=== PATIENT | female | born 1980 | race Caucasian/White ===

== ENCOUNTER 2016-12-16 11:36 | Emergency (ER) | payer MEDICARE, OTHER ==
--- NOTE | 2016-12-16 13:27 | ED CLINICAL REPORT ---
Clinical Report - Physicians/Mid Levels [facility] [address] [place] [address] 12/16/2016 11:39 [id number] Time Seen: [id number]. Arrived- By private vehicle. Historian- patient. HISTORY OF PRESENT ILLNESS Chief Complaint: Injury to right leg. The injury happened yesterday. Occurred at home. The patient sustained a direct blow and crush injury. Patient is experiencing moderate pain. Patient denies injury to the head or neck. (yesterday on 15 December, patient sustained a blow to her right leg when she was on the counter, fell onto a hard surface. She has been ambulatory, pain was such. Has had swelling, as well as discoloration. Has applied ice to the area. Has taken Motrin, however pain persists. Patient concerned about a fracture to the area.). REVIEW OF SYSTEMS The patient complains of pain on weight bearing. No swelling, tingling or skin laceration. All systems otherwise negative, except as recorded above. PAST HISTORY The patient has not had a prior injury to the same area. SOCIAL HISTORY Smoker- current status unknown. No alcohol use. ADDITIONAL NOTES The nursing notes have been reviewed. PHYSICAL EXAM Vital Signs: 12/16/2016 12:46 BP: 141/109. HR: 113. RR: 20. O2 saturation: 95%. Temp: 98.3 F. Pain level now: 7/10. Appearance: Alert. Patient in mild distress. Head: Head atraumatic. ENT: Ears normal. Nose normal. CVS: Normal heart rate and rhythm. Heart sounds normal. Respiratory: No respiratory distress. Breath sounds normal. Skin: Skin intact. Skin warm. Extremities: Right knee. No tenderness or laceration. Right leg: moderate tenderness, mild swelling and medium sized ecchymosis located in the anterior aspect of mid leg. Neurovascular intact distally. No laceration, abrasion, puncture wound or foreign body. No limitation of weight bearing. Right ankle. No tenderness or swelling. Neuro, Vascular and Tendons: Vascular status intact. Tendon function intact. Gait: Limping gait. Neuro: Oriented X 3. LABS, X-RAYS, AND EKG Rt Tib/Fib X-ray: No fracture. Normal alignment. No bony lesion. The X-rays were independently viewed by me. Interpretation time: 1332. PROGRESS AND PROCEDURES Course of Care: Pt with good distal sensation, no laceration, no signs of infectious process. Direct crush injury/ impact. Pt stable. Pt to f/u outpatient. XR neg. Patient is stable. Symptoms better. Patient/family counseled. Disposition: Discharged. Condition: good. CLINICAL IMPRESSION Single contusion with soft tissue hematoma to the right lower leg. INSTRUCTIONS Apply ice. Elevate affected areas above chest level. Prescription Medications: Tylenol with Codeine Tylenol #3 (30 mg / 300 mg) : take 1 tablet orally every 6 hours. Dispense ten (10). No refill. Substitution is permissible. OTC Medications: Take OTC medications according to label instructions. Available over the counter. Acetaminophen (available over the counter): take according to label instructions. Motrin IB 200 mg (available over the counter): take 4 orally every 8 hours for 5 days, as needed for pain Follow-up: Follow up with your doctor in three days. Understanding of the discharge instructions verbalized by patient. (Electronically signed by Iwona Lezama P.A.-C 12/16/2016 13:33)
--- NOTE | 2016-12-16 13:27 | ED ORDER SUMMARY ---
..... Patient: BRIAN MERIDA OrderSheet [facility] VisitID: [id number] [place] [address] 35y, F Registration Date/Time: 12/16/2016 ORDER SHEET Weight: 79.3 kg (stated) Allergies: Compazine GENERAL ORDERS: Tibia/Fibula Right Urgent (12:36 12/16/2016 Rudi Regalado) ([facility] 12:44 TBergl) (13:27 LWhalen R.N.) MEDICATION ORDERS: Tylenol w Codeine PO 2 tabs (HIGH ALERT MEDICATION, NOW) (13:12 12/16/2016 Rudi Regalado) (13:27 LWhalen R.N.) IV FLUIDS: ORDER SHEET NOTES: [Electronically signed by Iwona Lezama P.A.-C (13:33 12/16/2016)] [Electronically signed by Kay Gray R.N. (13:41 12/16/2016)] [Electronically locked/signed by Kay Gray R.N. (13:41 12/16/2016)]
--- NOTE | 2016-12-16 13:27 | ED ORDER SUMMARY ---
..... Patient: BRIAN MERIDA OrderSheet [facility] VisitID: [id number] [place] [address] 35y, F Registration Date/Time: 12/16/2016 ORDER SHEET Weight: 79.3 kg (stated) Allergies: Compazine GENERAL ORDERS: Tibia/Fibula Right Urgent (12:36 12/16/2016 Rudi Regalado) ([facility] 12:44 TBergl) (13:27 LWhalen R.N.) MEDICATION ORDERS: Tylenol w Codeine PO 2 tabs (HIGH ALERT MEDICATION, NOW) (13:12 12/16/2016 Rudi Regalado) (13:27 LWhalen R.N.) IV FLUIDS: ORDER SHEET NOTES: [Electronically signed by Iwona Lezama P.A.-C (13:33 12/16/2016)] [Electronically signed by Kay Gray R.N. (13:41 12/16/2016)] [Electronically locked/signed by Kay Gray R.N. (13:41 12/16/2016)]
--- NOTE | 2016-12-16 13:27 | ED NURSING NOTES ---
Clinical Report - Nurses [facility] [address] [place] [address] 12/16/2016 11:39 [id number] TRI[facility] Triage time 12:46. Acuity: LEVEL 4. Chief Complaint: INJURY TO THE RIGHT KNEE and RIGHT LEG. 12:53 12/16/16. MIN COMA SCORE: [place] Coma Scale: 15- eyes open spontaneously (4); best verbal response- oriented x 4 (5); best motor response- obeys commands (6). --12:53 Kvng Montgomery R.N. 12:46 12/16/16. BP: 141/109. HR: 113. RR: 20. O2 saturation: 95% on room air. Temp: 98.3 F (oral). Pain level now: 06/04. --12:53 Kvng Montgomery R.N. Weight: 79.3 kg stated. Height/Length: 65 inches Per Patient. BMI: 29.1. --12:49 Kvng Montgomery R.N. Medications BCP for home replacement therapy. --12:48 Kvng Montgomery R.N. Allergies Compazine. --12:48 Kvng Montgomery R.N. History Arrived by private vehicle. Historian: patient. ( Slipped off of a step stool and landed on her right patel on the metal step stool. Bruising from the lower patel to the medial knee. Pain from the lower patel into the knee.). She has had numbness (mild numbness in the right foot.). She has had tingling, (Right foot). 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 SOCIAL HX: Light tobacco smoker (cigarette)- less than 1/2 a pack per day. No alcohol use or drug use. ABUSE ASSESSMENT: No report of abuse. --12:53 Kvng Montgomery R.N. PROBLEMS: Conjunctivitis. Blepharitis. Abscess. Endometriosis. Sprain. Tetanus Status. Depression. Hypertension. --12:49 Kvng Montgomery R.N. ADDITIONAL SURGERIES: Hysterectomy. --12:49 Kvng Montgomery R.N. Interventions ID band on patient. To treatment room. --12:53 Kvng Montgomery R.N. NURSING PROGRESS NOTES 13:26 12/16/2016 TYLENOL W CODEINE (Acetaminophen-Codeine) PO Capsules 2 tab given. Allergies verified and confirmed 5 rights. --13:27 Abdullahi Amin R.N. DISPOSITION / DISCHARGE Departure time: 13:40. Condition at departure: improved. No learning barriers present. Discharge instructions provided and reviewed with the patient. Reviewed skin care instructions (ice packs). Reviewed referral to family practice for followup. Verbalized understanding. Written instructions provided. The patient was discharged home. She left the Emergency Department ambulatory and via private vehicle. --13:40 Kay Gray R.N. 13:38 12/16/16. BP: 135/99. HR: 111. RR: 18. O2 saturation: 99%. Pain level now: 5/10. --13:40 Kay Gray R.N. Locked/Released at 12/16/2016 13:41 by Kay Gray R.N.
--- NOTE | 2016-12-16 13:27 | ED CLINICAL REPORT ---
Clinical Report - Physicians/Mid Levels [facility] [address] [place] [address] 12/16/2016 11:39 [id number] Time Seen: [id number]. Arrived- By private vehicle. Historian- patient. HISTORY OF PRESENT ILLNESS Chief Complaint: Injury to right leg. The injury happened yesterday. Occurred at home. The patient sustained a direct blow and crush injury. Patient is experiencing moderate pain. Patient denies injury to the head or neck. (yesterday on 15 December, patient sustained a blow to her right leg when she was on the counter, fell onto a hard surface. She has been ambulatory, pain was such. Has had swelling, as well as discoloration. Has applied ice to the area. Has taken Motrin, however pain persists. Patient concerned about a fracture to the area.). REVIEW OF SYSTEMS The patient complains of pain on weight bearing. No swelling, tingling or skin laceration. All systems otherwise negative, except as recorded above. PAST HISTORY The patient has not had a prior injury to the same area. SOCIAL HISTORY Smoker- current status unknown. No alcohol use. ADDITIONAL NOTES The nursing notes have been reviewed. PHYSICAL EXAM Vital Signs: 12/16/2016 12:46 BP: 141/109. HR: 113. RR: 20. O2 saturation: 95%. Temp: 98.3 F. Pain level now: 7/10. Appearance: Alert. Patient in mild distress. Head: Head atraumatic. ENT: Ears normal. Nose normal. CVS: Normal heart rate and rhythm. Heart sounds normal. Respiratory: No respiratory distress. Breath sounds normal. Skin: Skin intact. Skin warm. Extremities: Right knee. No tenderness or laceration. Right leg: moderate tenderness, mild swelling and medium sized ecchymosis located in the anterior aspect of mid leg. Neurovascular intact distally. No laceration, abrasion, puncture wound or foreign body. No limitation of weight bearing. Right ankle. No tenderness or swelling. Neuro, Vascular and Tendons: Vascular status intact. Tendon function intact. Gait: Limping gait. Neuro: Oriented X 3. LABS, X-RAYS, AND EKG Rt Tib/Fib X-ray: No fracture. Normal alignment. No bony lesion. The X-rays were independently viewed by me. Interpretation time: 1332. PROGRESS AND PROCEDURES Course of Care: Pt with good distal sensation, no laceration, no signs of infectious process. Direct crush injury/ impact. Pt stable. Pt to f/u outpatient. XR neg. Patient is stable. Symptoms better. Patient/family counseled. Disposition: Discharged. Condition: good. CLINICAL IMPRESSION Single contusion with soft tissue hematoma to the right lower leg. INSTRUCTIONS Apply ice. Elevate affected areas above chest level. Prescription Medications: Tylenol with Codeine Tylenol #3 (30 mg / 300 mg) : take 1 tablet orally every 6 hours. Dispense ten (10). No refill. Substitution is permissible. OTC Medications: Take OTC medications according to label instructions. Available over the counter. Acetaminophen (available over the counter): take according to label instructions. Motrin IB 200 mg (available over the counter): take 4 orally every 8 hours for 5 days, as needed for pain Follow-up: Follow up with your doctor in three days. Understanding of the discharge instructions verbalized by patient. (Electronically signed by Iwona Lezama P.A.-C 12/16/2016 13:33)
--- NOTE | 2016-12-16 13:27 | ED NURSING NOTES ---
Clinical Report - Nurses [facility] [address] [place] [address] 12/16/2016 11:39 [id number] Triage time 12:46. Acuity: LEVEL 4. Chief Complaint: INJURY TO THE RIGHT KNEE and RIGHT LEG. 12:53 12/16/16. MIN COMA SCORE: [place] Coma Scale: 15- eyes open spontaneously (4); best verbal response- oriented x 4 (5); best motor response- obeys commands (6). --12:53 Kvng Montgomery R.N. 12:46 12/16/16. BP: 141/109. HR: 113. RR: 20. O2 saturation: 95% on room air. Temp: 98.3 F (oral). Pain level now: 06/04. --12:53 Kvng Montgomery R.N. Weight: 79.3 kg stated. Height/Length: 65 inches Per Patient. BMI: 29.1. --12:49 Kvng Montgomery R.N. Medications BCP for home replacement therapy. --12:48 Kvng Montgomery R.N. Allergies Compazine. --12:48 Kvng Montgomery R.N. History Arrived by private vehicle. Historian: patient. ( Slipped off of a step stool and landed on her right patel on the metal step stool. Bruising from the lower patel to the medial knee. Pain from the lower patel into the knee.). She has had numbness (mild numbness in the right foot.). She has had tingling, (Right foot). 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 SOCIAL HX: Light tobacco smoker (cigarette)- less than 1/2 a pack per day. No alcohol use or drug use. ABUSE ASSESSMENT: No report of abuse. --12:53 Kvng Montgomery R.N. PROBLEMS: Conjunctivitis. Blepharitis. Abscess. Endometriosis. Sprain. Tetanus Status. Depression. Hypertension. --12:49 Kvng Montgomery R.N. ADDITIONAL SURGERIES: Hysterectomy. --12:49 Kvng Montgomery R.N. Interventions ID band on patient. To treatment room. --12:53 Kvng Montgomery R.N. NURSING PROGRESS NOTES 13:26 12/16/2016 TYLENOL W CODEINE (Acetaminophen-Codeine) PO Capsules 2 tab given. Allergies verified and confirmed 5 rights. --13:27 Abdullahi Amin R.N. DISPOSITION / DISCHARGE Departure time: 13:40. Condition at departure: improved. No learning barriers present. Discharge instructions provided and reviewed with the patient. Reviewed skin care instructions (ice packs). Reviewed referral to family practice for followup. Verbalized understanding. Written instructions provided. The patient was discharged home. She left the Emergency Department ambulatory and via private vehicle. --13:40 Kay Gray R.N. 13:38 12/16/16. BP: 135/99. HR: 111. RR: 18. O2 saturation: 99%. Pain level now: 5/10. --13:40 Kay Gray R.N. Locked/Released at 12/16/2016 13:41 by Kay Gray R.N.
--- NOTE | 2016-12-16 13:42 | ED DISCHARGE INSTRUCTIONS ---
Patient: BRIAN MERIDA General Instructions [facility] VisitID: [id number] [place] [address] 35y, F Registration Date/Time: 12/16/2016 Single contusion with soft tissue hematoma to the right lower leg. INSTRUCTIONS Apply ice. Elevate affected areas above chest level. Prescription Medications: Tylenol with Codeine Tylenol #3 (30 mg / 300 mg) : take 1 tablet orally every 6 hours. Dispense ten (10). No refill. Substitution is permissible. OTC Medications: Take OTC medications according to label instructions. Available over the counter. Acetaminophen (available over the counter): take according to label instructions. Motrin IB 200 mg (available over the counter): take 4 orally every 8 hours for 5 days, as needed for pain Follow-up: Follow up with your doctor in three days. Understanding of the discharge instructions verbalized by patient. ADDITIONAL INFORMATION Contusion:Lower Extremity You have a CONTUSION of your LOWER extremity (leg, knee, ankle, foot, or toes). This causes local pain, swelling and sometimes bruising. There are no broken bones. This injury may take from a few days to a few weeks to heal. Home Care: 1) Keep your leg elevated to reduce pain and swelling. When sleeping, place a pillow under the injured leg. When sitting, support the injured leg so it is level with your waist. This is very important during the first 48 hours. 2) If CRUTCHES have been advised, do not bear full weight on the injured leg until you can do so without pain. You may return to sports when you are able to hop and run on the injured leg without pain. 3) Apply an ice pack (ice cubes in a plastic bag, wrapped in a towel) over the injured area for 20 minutes every 1-2 hours the first day for pain relief. Continue this 3-4 times a day until the pain and swelling goes away. 4) You may use acetaminophen (Tylenol) or ibuprofen (Motrin, Advil) to control pain, unless another pain medicine was prescribed. [ NOTE : If you have chronic liver or kidney disease or ever had a stomach ulcer or GI bleeding, talk with your doctor before using these medicines.] Follow Up with your doctor or this facility if you are not starting to improve within the next THREE days. [NOTE: If X-rays were taken, they will be reviewed by a radiologist. You will be notified of any new findings that may affect your care.] Get Prompt Medical Attention if any of the following occur: -- Pain or swelling increases -- Toes become cold, blue, numb or tingly -- Redness, warmth or drainage from the skin Acetaminophen, Codeine Phosphate Oral tablet What is this medicine? ACETAMINOPHEN; CODEINE (a set a BLANCA ashlee fen; KOE david) is a pain reliever. It is used to treat mild to moderate pain. How should I use this medicine? Take this medicine by mouth with a full glass of water. Follow the directions on the prescription label. If the medicine upsets your stomach, take the medicine with food or milk. Do not take more medicine than you are told to take. Talk to your power truck driver regarding the use of this medicine in children. Special care may be needed. What side effects may I notice from receiving this medicine? Side effects that you should report to your doctor or health home health aide caregiver as soon as possible: allergic reactions like skin rash, itching or hives, swelling of the face, lips, or tongue breathing difficulties, wheezing confusion light headedness or fainting spells severe stomach pain yellowing of the skin or the whites of the eyes Side effects that usually do not require medical attention (report to your doctor or health home health aide caregiver if they continue or are bothersome): dizziness drowsiness nausea, vomiting What may interact with this medicine? alcohol antihistamines benztropine drugs for bladder problems like solifenacin, trospium, oxybutynin, tolterodine, hycosamine, and methscopolamine drugs for breathing problems like ipratropium and tiotropium drugs for certain stomach or intestine problems like propantheline, homatropine methylbromide, glycopyrrolate, atropine, belladonna, and dicyclomine medicines for depression, anxiety, or psychotic disturbances medicines for sleep muscle relaxants naltrexone narcotic medicines (opiates) for pain phenothiazines like perphenazine, thioridazine, chlorpromazine, mesoridazine, fluphenazine, prochlorperazine, promazine, trifluoperazine scopolamine tramadol trihexyphenidyl What if I miss a dose? If you miss a dose, take it as soon as you can. If it is almost time for your next dose, take only that dose. Do not take double or extra doses. Where should I keep my medicine? Keep out of the reach of children. This medicine can be abused. Keep your medicine in a safe place to protect it from theft. Do not share this medicine with anyone. Selling or giving away this medicine is dangerous and against the law. Store at room temperature between 15 and 30 degrees C (59 and 86 degrees F). Protect from light. Keep container tightly closed. Throw away any unused medicine after the expiration date. Discard unused medicine and used packaging carefully. Pets and children can be harmed if they find used or lost packages. What should I tell my health care provider before I take this medicine? They need to know if you have any of these conditions: brain tumor Crohn's disease, inflammatory bowel disease, or ulcerative colitis drink more than 3 alcohol containing drinks per day drug abuse or addiction head injury heart or circulation problems kidney disease or problems going to the bathroom liver disease lung disease, asthma, or breathing problems an unusual or allergic reaction to acetaminophen, codeine, salicylates, other opioid analgesics, other medicines, foods, dyes, or preservatives or trying to get breast-feeding What should I watch for while using this medicine? Tell your doctor or health home health aide caregiver if your pain does not go away, if it gets worse, or if you have new or a different type of pain. You may develop tolerance to the medication. Tolerance means that you will need a higher dose of the medication for pain relief. Tolerance is normal and is expected if you take the medicine for a long time. Do not suddenly stop taking your medicine because you may develop a severe reaction. Your body becomes used to the medicine. This does NOT mean you are addicted. Addiction is a behavior related to getting and using a drug for a non medical reason. If you have pain, you have a medical reason to take pain medicine. Your doctor will tell you how much medicine to take. If your doctor wants you to stop the medicine, the dose will be slowly lowered over time to avoid any side effects. You may get drowsy or dizzy. Do not drive, use machinery, or do anything that needs mental alertness until you know how this medicine affects you. Do not stand or sit up quickly, especially if you are an older patient. This reduces the risk of dizzy or fainting spells. Alcohol may interfere with the effect of this medicine. Avoid alcoholic drinks. There are different types of narcotic medicines (opiates) for pain. If you take more than one type at the same time, you may have more side effects. Give your health care provider a list of all medicines you use. Your doctor will tell you how much medicine to take. Do not take more medicine than directed. Call emergency for help if you have problems breathing. The medicine will cause constipation. Try to have a bowel movement at least every 2 to 3 days. If you do not have a bowel movement for 3 days, call your doctor or health home health aide caregiver. Do not take Tylenol (acetaminophen) or medicines that have acetaminophen with this medicine. Too much acetaminophen can be very dangerous. Many nonprescription medicines contain acetaminophen. Always read the labels carefully to avoid taking more acetaminophen. Immediately call your physician or get emergency help if you are breast-feeding and your baby is sleepier than usual, is limp, or has difficulty or breathing. Ibuprofen Oral tablet What is this medicine? IBUPROFEN (eye BYOO proe fen) is a non-steroidal anti-inflammatory drug (NSAID). It is used for dental pain, fever, headaches or migraines, osteoarthritis, rheumatoid arthritis, or painful monthly periods. It can also relieve minor aches and pains caused by a cold, flu, or sore throat. How should I use this medicine? Take this medicine by mouth with a glass of water. Follow the directions on the prescription label. Take this medicine with food if your stomach gets upset. Try to not lie down for at least 10 minutes after you take the medicine. Take your medicine at regular intervals. Do not take your medicine more often than directed. A special MedGuide will be given to you by the pharmacist with each prescription and refill. Be sure to read this information carefully each time. Talk to your power truck driver regarding the use of this medicine in children. Special care may be needed. What side effects may I notice from receiving this medicine? Side effects that you should report to your doctor or health home health aide caregiver as soon as possible: allergic reactions like skin rash, itching or hives, swelling of the face, lips, or tongue black or bloody stools, blood in the urine or in vomit breathing problems changes in vision chest pain general ill feeling or flu-like symptoms nausea or vomiting redness, blistering, peeling or loosening of the skin, including inside the mouth slurred speech or weakness on one side of the body stomach pain unexplained weight gain or swelling unusually weak or tired yellowing of eyes or skin Side effects that usually do not require medical attention (report to your doctor or health home health aide caregiver if they continue or are bothersome): constipation or diarrhea dizziness gas or heartburn stomach upset What may interact with this medicine? Do not take this medicine with any of the following medications: cidofovir ketorolac methotrexate pemetrexed This medicine may also interact with the following medications: alcohol aspirin diuretics lithium other drugs for inflammation like prednisone warfarin What if I miss a dose? If you miss a dose, take it as soon as you can. If it is almost time for your next dose, take only that dose. Do not take double or extra doses. Where should I keep my medicine? Keep out of the reach of children. Store at room temperature between 15 and 30 degrees C (59 and 86 degrees F). Keep container tightly closed. Throw away any unused medicine after the expiration date. What should I tell my health care provider before I take this medicine? They need to know if you have any of these conditions: asthma cigarette smoker drink more than 3 alcohol containing drinks a day heart disease or circulation problems such as heart failure or leg edema (fluid retention) high blood pressure kidney disease liver disease stomach bleeding or ulcers an unusual or allergic reaction to ibuprofen, aspirin, other NSAIDS, other medicines, foods, dyes, or preservatives or trying to get breast-feeding What should I watch for while using this medicine? Tell your doctor or healthcare professional if your symptoms do not start to get better or if they get worse. This medicine does not prevent heart attack or stroke. In fact, this medicine may increase the chance of a heart attack or stroke. The chance may increase with longer use of this medicine and in people who have heart disease. If you take aspirin to prevent heart attack or stroke, talk with your doctor or health home health aide caregiver. Do not take other medicines that contain aspirin, ibuprofen, or naproxen with this medicine. Side effects such as stomach upset, nausea, or ulcers may be more likely to occur. Many medicines available without a prescription should not be taken with this medicine. This medicine can cause ulcers and bleeding in the stomach and intestines at any time during treatment. Ulcers and bleeding can happen without warning symptoms and can cause . To reduce your risk, do not smoke cigarettes or drink alcohol while you are taking this medicine. You may get drowsy or dizzy. Do not drive, use machinery, or do anything that needs mental alertness until you know how this medicine affects you. Do not stand or sit up quickly, especially if you are an older patient. This reduces the risk of dizzy or fainting spells. This medicine can cause you to bleed more easily. Try to avoid damage to your teeth and gums when you brush or floss your teeth. You have been given the following additional information: Contusion, Lower Extremity Acetaminophen, Codeine Phosphate Oral tablet Ibuprofen Oral tablet (Electronically signed by Iwona Lezama P.A.-C 12/16/2016 13:33)
--- NOTE | 2016-12-16 13:42 | ED MED RECONCILIATION SUMMARY ---
Patient: BRIAN MERIDA Medication Reconciliation Report [facility] VisitID: [id number] [address] [place] [address] 35y, F Registration Date/Time: 12/16/2016 Weight: 79.3 kg Height/Length: 65 in. BMI: 29.1 ALLERGIES: Compazine The patient's Home Medications are listed below: THE FOLLOWING MEDICATIONS NEED TO BE RECONCILED: BCP for home replacement therapy The source(s) of the original Home Medication information: Not obtained. The following Medications were given to the patient in the Emergency Department: TYLENOL W CODEINE [PO] PO 2 tab, administered: 12/16/2016 1:26:00 PM The following Medications were prescribed to the patient: Take OTC medications according to label instructions. Available over the counter. -- Iwona Lezama, P.A.-C Acetaminophen (available over the counter): take according to label instructions. -- Iwona Lezama, P.A.-C Motrin IB 200 mg (available over the counter): take 4 orally every 8 hours for 5 days, as needed for pain -- Iwona Lezama, P.A.-C Tylenol with Codeine Tylenol #3 (30 mg / 300 mg) : take 1 tablet orally every 6 hours. Dispense ten (10). No refill. Substitution is permissible. -- Iowna Lezama, P.A.-C
--- NOTE | 2016-12-16 13:42 | ED MAR SUMMARY ---
..... Medication Administration Record [facility] [address] [place] [address] Patient: BRIAN MERIDA Visit ID: [id number] 35y, F Weight: 79.3 kg Height/Length: 65 in BMI: 29.1 ALLERGIES: Compazine Given 13:26 12/16/2016 Abdullahi Amin R.N. Medication Administered: TYLENOL W CODEINE [PO] (ACETAMINOPHEN-CODEINE), Dose: 2 tab Capsules PO. Medication Ordered: Tylenol w Codeine PO 2 tabs (HIGH ALERT MEDICATION, NOW).
--- NOTE | 2016-12-16 13:42 | ED MED RECONCILIATION SUMMARY ---
Patient: BRIAN MERIDA Medication Reconciliation Report [facility] VisitID: [id number] [address] [place] [address] 35y, F Registration Date/Time: 12/16/2016 Weight: 79.3 kg Height/Length: 65 in. BMI: 29.1 ALLERGIES: Compazine The patient's Home Medications are listed below: THE FOLLOWING MEDICATIONS NEED TO BE RECONCILED: BCP for home replacement therapy The source(s) of the original Home Medication information: Not obtained. The following Medications were given to the patient in the Emergency Department: TYLENOL W CODEINE [PO] PO 2 tab, administered: 12/16/2016 1:26:00 PM The following Medications were prescribed to the patient: Take OTC medications according to label instructions. Available over the counter. -- Iwona Lezama, P.A.-C Acetaminophen (available over the counter): take according to label instructions. -- Iwona Lezama, P.A.-C Motrin IB 200 mg (available over the counter): take 4 orally every 8 hours for 5 days, as needed for pain -- Iwona Lezama, P.A.-C Tylenol with Codeine Tylenol #3 (30 mg / 300 mg) : take 1 tablet orally every 6 hours. Dispense ten (10). No refill. Substitution is permissible. -- Iwona Lezama, P.A.-C
--- NOTE | 2016-12-16 13:42 | ED MAR SUMMARY ---
..... Medication Administration Record [facility] [address] [place] [address] Patient: BRIAN MERIDA Visit ID: [id number] 35y, F Weight: 79.3 kg Height/Length: 65 in BMI: 29.1 ALLERGIES: Compazine Given 13:26 12/16/2016 Abdullahi Amin R.N. Medication Administered: TYLENOL W CODEINE [PO] (ACETAMINOPHEN-CODEINE), Dose: 2 tab Capsules PO. Medication Ordered: Tylenol w Codeine PO 2 tabs (HIGH ALERT MEDICATION, NOW).
--- NOTE | 2016-12-16 14:02 | DIAGNOSTIC IMAGING REPORT ---
PROCEDURE: XR TIBIA AND FIBULA - RIGHT INDICATION: Fall injury, initial encounter TECHNIQUE: AP and lateral view COMPARISON: None. FINDINGS: No fracture or dislocation. Joint spaces and soft tissues are normal IMPRESSION: 1. Negative right tibia-fibula
== END 2016-12-16 13:40 | disposition home or self-care (01) ==
LOC: ED SRH 11:36
DX: S80.11XA Contusion of right lower leg, initial encounter (principal); W19.XXXA Unspecified fall, initial encounter; Y93.9 Activity, unspecified; Y92.009 Unspecified place in unspecified non-institutional (private) residence as the place of occurrence of the external cause; Y99.9 Unspecified external cause status; F17.200 Nicotine dependence, unspecified, uncomplicated